=== PATIENT | male | born 1995 | race Caucasian/White ===

== ENCOUNTER 2019-05-19 04:22 | Emergency (ER) | payer OTHER ==
[2019-05-19] MEDS ORDERED: IBUPROFEN 600 MG TABLET PO STA (04:47)
--- NOTE | 2019-05-19 04:47 | ED Physician Documentation ---
PD HPI FEVER - Stated complaint Stated Complaint: FEVER - Chief complaint Chief Complaint: Fever - History of Present Illness Timing - onset: How many hours ago (9) Timing duration: Hours (9) Timing details: Abrupt onset Associated symptoms: Chills, Sweats, Sore throat. 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 Temperature was 103.5 and he took TheraFlu. He denies any stuffy nose. No known sick exposures. He denies coughing, abdominal pain, vomiting, dysuria or rash. Of note he did recently get some tattoos about 3 days ago. Review of Systems Constitutional: reports: Fever, Chills, Sweats Eyes: reports: Photophobia Ears: denies: Ear pain Nose: denies: Rhinorrhea / runny nose, Congestion Throat: reports: Sore throat Respiratory: denies: Dyspnea, Cough GI: denies: Abdominal Pain, Nausea, Vomiting : denies: Dysuria, Frequency, Hesitancy Skin: denies: Rash Neurologic: reports: Headache Endocrine: reports: Other (He is not diabetic) PD PAST MEDICAL HISTORY - Present Medications Home Medications: Ambulatory Orders Medication Instructions Recorded Confirmed No Known Home Medications 05/19/19 05/19/19 - Allergies Allergies/Adverse Reactions: Allergies Allergy/AdvReac Type Severity Reaction Status Date / Time No Known Drug Allergies Allergy Verified 05/19/19 04:29 PD ED PE NORMAL - Vitals Vital signs reviewed: Yes - General General: Alert and oriented X 3, No acute distress, Well developed/nourished - HEENT HEENT: Atraumatic, PERRL, EOMI, Ears normal, Moist mucous membranes, Pharynx benign - Neck Neck: Supple, no meningeal sign, No adenopathy - Cardiac Cardiac: RRR, No murmur, Strong equal pulses - Respiratory Respiratory: No respiratory distress, Clear bilaterally - Abdomen Abdomen: Normal bowel sounds, Soft, Non tender, Non distended, No organomegaly - Derm Derm: Normal color, Warm and dry, Other (There is a new tattoo around the left wrist. 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 He stated that his headache was essentially gone. Strep screen was negative. At this point I think he has a viral syndrome. He is good to go home, rest and drink plenty of fluids. Ibuprofen up to 800 mg every 8 hours with food and/or Tylenol 1 g up to every 6 hours as needed for fever. He should not be at work until 24 hours after his fever breaks. He should return if he has increasing headache, He develops a cough fevers not controlled with ibuprofen and Tylenol or abdominal pain or urinary symptoms. He states understanding. Departure - Departure Disposition: 01 Home, Self Care Clinical Impression: Fever Qualifiers: Fever type: unspecified Qualified Code(s): R50.9 - Fever, unspecified Condition: Good Instructions: ED Fever Unconf Cause [facility] Comments: Home and rest. Drink lots of water. Take ibuprofen 4 tablets every 8 hours with food if needed for fever. Take Tylenol up to 1 g every 6 hours as needed for fever. You should not be at work until 24 hours after your fever is broken. Try to avoid contact with other people as much as possible right now to avoid the spread of infectious illness. Return if you have increasing headache, fevers not controlled with Tylenol and ibuprofen, there is any rash developing around the tattoos, you develop a cough or vomiting or abdominal pain or urinary symptoms.
[2019-05-19 06:03] VITALS: BP 132/52
== END 2019-05-19 06:31 | disposition home or self-care (01) ==
LOC: ED 04:22
DX: R50.9 Fever, unspecified (principal); L81.8 Other specified disorders of pigmentation; L53.9 Erythematous condition, unspecified
CPT/HCPCS: 87070; 87077; 87430; 99282; 99283; A9270